=== PATIENT | female | born 1990 | race American Indian/Alaskan Native ===

== ENCOUNTER 2017-02-21 13:04 | Inpatient (IN) | payer MEDICAID, OTHER ==
--- NOTE | 2017-02-21 13:33 | Emergency Department Report ---
Chief Complaint: Abdominal Pain Stated Complaint: VOMITING, NOT FEEL GOOD - HPI History of Present Illness: This is a 26-year-old female that presents with generalized body aches, diffuse abdominal pain, vomiting, back pain that radiates towards left lower extremity. Patient denies any trauma to the back. Patient describes pain as aching with level of 8 out of 10. Patient states vomiting is from content. Denies any stiff neck, headache, chest pain, shortness of breath. - Exam Vital Signs: Vital Signs 02/21/17 13:21 Temperature 98.5 F Pulse Rate 80 Respiratory 18 Rate Blood Pressure 151/97 O2 Sat by Pulse 100 Oximetry Physical Exam: GENERAL: The patient is a well-developed, well-nourished female in no apparent distress. Patient is alert and acting appropriately for age. Alert and oriented 3, no apparent distress, normal gait, atraumatic. Back: Midline lumbar spinal tenderness. Left CVA tenderness. ABDOMEN: Soft, nontender, and nondistended. Positive bowel sounds. No hepatosplenomegaly was noted. No guarding or rebound tenderness, negative epigastric bruit. Negative psoas sign, negative sharp sign, negative McBurneys sign EXTREMITIES: Without any cyanosis, clubbing, rash, lesions or edema. Peripheral pulses intact. Capillary refill less than 2 seconds. Full range of motion bilaterally. NEUROLOGIC: Cranial nerves II through XII are grossly intact. Alert and oriented x 3. Normal gait. Symmetrical strength and sensation. Reflexes 2+ throughout. Cerebellar testing normal. GCS score of 15. MSE screening note: Focused history and physical exam performed. Due to findings the following was ordered: 1- This initial assessment/diagnostic orders/clinical plan/ treatment(s) is/are subject to change based on pt's health status, clinical progression and re- assessment by fellow clinical providers in the ED. Further treatment and workup at subsequent clinical provers discretion. Patient/guardians urged not to elope from ED as their condition may be serious if not clinically assessed and managed. 2-CBC, CMP, lipase, UA, test ED Disposition for MSE Condition: Stable Instructions: Abdominal Pain (ED)
[2017-02-21 13:52] LABS: Basophils % (Auto) 0.9 % (0.0-1.8); Eosinophils % (Auto) 0.3 % (0.0-4.3); Hematocrit 32.9 % (30.3-42.9); Hemoglobin 10.7 gm/dl (10.1-14.3); Mean Corpuscular HGB Conc 33 % (30-34); Mean Corpuscular Hemoglobin 29 pg (28-32); Mean Corpuscular Volume 88 fl (79-97); Platelet Count 208 K/mm3 (140-440); Red Blood Count 3.74 M/mm3 (3.65-5.03); Red Cell Distribution Width 14.1 % (13.2-15.2); White Blood Count 8.4 K/mm3 (4.5-11.0)
[2017-02-21 14:11] LABS: Albumin 3.5 g/dL (3.9-5); Albumin/Globulin Ratio 0.9 %; Bilirubin,Total 0.2 mg/dL (0.1-1.2); Calcium 8.2 mg/dL (8.4-10.2); Chloride 95.6 mmol/L (98-107); Potassium 3.8 mmol/L (3.6-5.0); Total Protein 7.5 g/dL (6.3-8.2)
[2017-02-21 15:36] LABS: Bacteria,Urine 2+ /HPF (Negative); Bilirubin,Urine NEG (Negative); Blood,Urine NEG (Negative); Ketones,Urine NEG (Negative); Leukocyte Esterase,Urine TR (Negative); Nitrite,Urine NEG (Negative); Urobilinogen,Urine < 2.0 mg/dL (<2.0)
[2017-02-21 15:40] LABS: Protein,Urine >500 mg/dL (Negative)
[2017-02-21] MEDS ORDERED: PHENERGAN PO ONE (22:52)
[2017-02-21] MEDS ORDERED: NORCO 5/325 PO ONE (22:52)
[2017-02-21] MEDS ORDERED: ZOFRAN IV ONE (22:58)
[2017-02-21] MEDS ORDERED: MORPHINE IV ONE (22:58)
[2017-02-21] MEDS ORDERED: NACL 0.9% 1000 ML 1,000 ML IV ONE (22:58)
--- NOTE | 2017-02-21 23:00 | Emergency Department Report ---
HPI - General Chief Complaint: Abdominal Pain Time Seen by Provider: 02/21/17 22:28 - HPI HPI: Room 26 The patient is a 26-year-old female presenting with a chief complaint nausea vomiting abdominal pain back pain. The patient states since yesterday she has had diffuse abdominal pain and low back pain. Patient states she has exhibited nausea and vomiting. The patient states today she momentarily had increased work of breathing. Patient denies fever, dysuria or hematuria. Patient did admit to burning chest pain earlier today that has since resolved. Patient also complains of intermittent numbness to her left lower extremity for the past 2 years which she has never been evaluated for. The patient states she attributed to an epidural she had received at that time. Location: [See above] Duration: [See above] Quality: Burning Severity: Moderate Modifying factors: [see above] Context: [see above] Mode of transportation: [not driving] ED Past Medical Hx - Past Medical History Previous Medical History?: No - Surgical History Past Surgical History?: No Additional Surgical History: - Family History Family history: no significant - Social History Smoking Status: Current Some Day Smoker (2-3 cigarettes daily) Substance Use Type: Marijuana - Medications Home Medications: Home Medications Medication Instructions Recorded Confirmed Last Taken Type No Known Home Medications [No 02/21/17 02/21/17 Unknown History Reported Home Medications] ED Review of Systems ROS: Stated complaint: VOMITING, NOT FEEL GOOD Other details as noted in HPI Constitutional: chills. denies: fever Respiratory: shortness of breath Cardiovascular: chest pain Gastrointestinal: abdominal pain, nausea, vomiting Genitourinary: denies: dysuria, hematuria Musculoskeletal: back pain Neurological: paresthesias Physical Exam - Physical Exam Vital Signs: Vital Signs 02/21/17 02/21/17 02/21/17 13:21 19:26 22:03 Temperature 98.5 F 98.6 F 98.2 F Pulse Rate 80 75 76 Respiratory 18 18 20 Rate Blood Pressure 151/97 148/89 Blood Pressure 135/95 [Left] O2 Sat by Pulse 100 100 98 Oximetry Physical Exam: GENERAL: The patient is well-developed well-nourished female lying on stretcher not appearing to be in acute distress. [] HEENT: Normocephalic. Atraumatic. Extraocular motions are intact. Patient has moist mucous membranes. NECK: Supple. Trachea midline CHEST/LUNGS: Clear to auscultation. There is no respiratory distress noted. HEART/CARDIOVASCULAR: Regular. There is no tachycardia. There is no gallop rub or murmur. 2+ DP left foot. Normal capillary refill toes of left foot ABDOMEN: Abdomen is soft with diffuse discomfort to palpation but no rebound or guarding. Patient has normal bowel sounds. There is no abdominal distention. SKIN: There is no rash. There is no edema. There is no diaphoresis. NEURO: The patient is awake, alert, and oriented. The patient is cooperative. The patient has normal speech MUSCULOSKELETAL: There is no evidence of acute injury. ED Course Vital Signs 02/21/17 02/21/17 02/21/17 13:21 19:26 22:03 Temperature 98.5 F 98.6 F 98.2 F Pulse Rate 80 75 76 Respiratory 18 18 20 Rate Blood Pressure 151/97 148/89 Blood Pressure 135/95 [Left] O2 Sat by Pulse 100 100 98 Oximetry ED Medical Decision Making - Lab Data Result diagrams: 02/21/17 13:35 02/21/17 13:35 Laboratory Tests 02/21/17 02/21/17 02/21/17 13:35 13:35 15:07 WBC 8.4 RBC 3.74 Hgb 10.7 Hct 32.9 MCV 88 MCH 29 MCHC 33 RDW 14.1 Plt Count 208 Lymph % (Auto) 23.6 [place] % (Auto) 13.7 H Eos % (Auto) 0.3 Baso % (Auto) 0.9 Lymph # 2.0 [place] # 1.2 H Eos # 0.0 Baso # 0.1 Seg Neutrophils % 61.5 Seg Neutrophils # 5.2 Sodium 136 L Potassium 3.8 Chloride 95.6 L Carbon Dioxide 26 Anion Gap 18 BUN 20 H Creatinine 3.0 H Estimated GFR 19 BUN/Creatinine Ratio 7 Glucose 94 Calcium 8.2 L Total Bilirubin 0.20 AST 16 ALT 11 Alkaline Phosphatase 62 Total Protein 7.5 Albumin 3.5 L Albumin/Globulin Ratio 0.9 Lipase 21 Urine Color Yellow Urine Turbidity Clear Urine pH 6.0 Ur Specific [place] 1.017 Urine Protein >500 Urine Glucose (UA) Neg Urine Ketones Neg Urine Blood Neg Urine Nitrite Neg Ur Reducing Substances Not Reportable Urine Bilirubin Neg Urine Ictotest Not Reportable Urine Urobilinogen < 2.0 Ur Leukocyte Esterase Tr Urine WBC (Auto) 63.0 H Urine RBC (Auto) 12.0 U Epithel Cells (Auto) 7.0 Urine Bacteria (Auto) 2+ Urine HCG, Qual Negative Laboratory Tests 02/21/17 02/21/17 02/21/17 13:35 13:35 15:07 WBC 8.4 RBC 3.74 Hgb 10.7 Hct 32.9 MCV 88 MCH 29 MCHC 33 RDW 14.1 Plt Count 208 Lymph % (Auto) 23.6 [place] % (Auto) 13.7 H Eos % (Auto) 0.3 Baso % (Auto) 0.9 Lymph # 2.0 [place] # 1.2 H Eos # 0.0 Baso # 0.1 Seg Neutrophils % 61.5 Seg Neutrophils # 5.2 D-Dimer Sodium 136 L Potassium 3.8 Chloride 95.6 L Carbon Dioxide 26 Anion Gap 18 BUN 20 H Creatinine 3.0 H Estimated GFR 19 BUN/Creatinine Ratio 7 Glucose 94 Calcium 8.2 L Total Bilirubin 0.20 AST 16 ALT 11 Alkaline Phosphatase 62 Total Protein 7.5 Albumin 3.5 L Albumin/Globulin Ratio 0.9 Lipase 21 Urine Color Yellow Urine Turbidity Clear Urine pH 6.0 Ur Specific [place] 1.017 Urine Protein >500 Urine Glucose (UA) Neg Urine Ketones Neg Urine Blood Neg Urine Nitrite Neg Ur Reducing Substances Not Reportable Urine Bilirubin Neg Urine Ictotest Not Reportable Urine Urobilinogen < 2.0 Ur Leukocyte Esterase Tr Urine WBC (Auto) 63.0 H Urine RBC (Auto) 12.0 U Epithel Cells (Auto) 7.0 Urine Bacteria (Auto) 2+ Urine HCG, Qual Negative 02/21/17 22:56 WBC RBC Hgb Hct MCV MCH MCHC RDW Plt Count Lymph % (Auto) [place] % (Auto) Eos % (Auto) Baso % (Auto) Lymph # [place] # Eos # Baso # Seg Neutrophils % Seg Neutrophils # D-Dimer 215.42 Sodium Potassium Chloride Carbon Dioxide Anion Gap BUN Creatinine Estimated GFR BUN/Creatinine Ratio Glucose Calcium Total Bilirubin AST ALT Alkaline Phosphatase Total Protein Albumin Albumin/Globulin Ratio Lipase Urine Color Urine Turbidity Urine pH Ur Specific [place] Urine Protein Urine Glucose (UA) Urine Ketones Urine Blood Urine Nitrite Ur Reducing Substances Urine Bilirubin Urine Ictotest Urine Urobilinogen Ur Leukocyte Esterase Urine WBC (Auto) Urine RBC (Auto) U Epithel Cells (Auto) Urine Bacteria (Auto) Urine HCG, Qual - Radiology Data Radiology results: image reviewed (chest x-ray) interpreted by me: Chest x-ray-no focal infiltrates, no pneumothorax - Differential Diagnosis pyelonephritis, acute renal failure, , ectopic , PE Critical care attestation.: If time is entered above; I have spent that time in minutes in the direct care of this critically ill patient, excluding procedure time. ED Disposition Clinical Impression: Acute renal failure, Pyelonephritis Disposition: OP ADMIT IP TO THIS HOSP Is pt being admited?: Yes Does the pt Need Aspirin: No (renal insufficiency) Condition: Fair Instructions: Abdominal Pain (ED) Referrals: PRIMARY CARE, [Primary Care Provider] - 3-5 Days Time of Disposition: 23:36 (hospitalist paged)
[2017-02-21] MEDS ORDERED: cefTRIAXone 1 GM in NACL 0.9% 20 ML IV ONE (23:04)
[2017-02-21] MEDS ORDERED: NACL 0.9% 1000 ML 1,000 ML IV SCH (23:45)
[2017-02-21] MEDS ORDERED: TYLENOL PO PRN (23:50)
[2017-02-21] MEDS ORDERED: MILK OF MAGNESIA PO PRN (23:50)
[2017-02-21] MEDS ORDERED: ZOFRAN IV PRN (23:50)
[2017-02-21] MEDS ORDERED: DULCOLAX PR PRN (23:50)
--- NOTE | 2017-02-21 23:50 | History and Physical Report ---
History of Present Illness Date of examination: 02/21/17 History of present illness: 26-year-old woman with no medical problems comes emergency room with complaints of nausea vomiting since yesterday, she said a total of 5 episodes. Also complaining of lower back pain that started yesterday, unable to describe it, constant, intensity 6/10, no radiation, denies dysuria or urinary frequency, admits to chills. Also complaining of chest pain in the epigastric area, pleuritic in nature, intensity 4/10, no radiation and she cannot identify exacerbating or relieving factors. Denies diaphoresis or palpitation, shortness of breath. Patient states she had renal failure last year secondary to nausea vomiting and it resolved during the hospitalization Review Of Systems: Constitutional: no weight loss Ears, eyes, nose, mouth and throat: no nasal congestion, no nasal discharge, no sinus pressure, blurry vision, diplopia Neck: No neck pain or rigidity. Cardiovascular: no orthopnea, palpitations Respiratory: No shortness of breath, cough Gastrointestinal: no abdominal pain, hematochezia Genitourinary : no dysuria, frequency , hematuria Musculoskeletal: no muscle ache Integumentary: no rash, no pruritis Neurological: no parathesias, focal weakness Endocrine: no cold or heat intolerance, no polyuria or polydipsia Hematologic/Lymphatic: no easy bruising, no easy bleeding, no gland swelling Allergic/Immunologic: no urticaria, no angioedema. PAST MEDICAL HISTORY: None PAST SURGICAL HISTORY: 2 FAMILY HISTORY: Hypertension SOCIAL HISTORY: Smokes 5 cigarettes a day, marijuana use, no alcohol Medications and Allergies Allergies Allergy/AdvReac Type Severity Reaction Status Date / Time No Known Allergies Allergy Unverified 02/21/17 13:24 Home Medications Medication Instructions Recorded Confirmed Last Taken Type No Known Home Medications [No 02/21/17 02/21/17 Unknown History Reported Home Medications] Active Meds: Active Medications Sodium Chloride (Nacl 0.9% 1000 Ml) 1,000 mls @ 999 mls/hr IV ONCE ONE Stop: 02/21/17 23:58 Last Admin: 02/21/17 23:28 Dose: 999 mls/hr Exam - Physical Exam Narrative exam: Gen. appearance: Patient lying in bed in no acute distress HEENT: Normocephalic/atraumatic, pupils equal round reactive to light, extra alkaline movement intact, no scleral icterus, no JVD or thyromegaly or nodule, neck is supple, mucous membrane moist, no erythema or exudate Heart: S1-S2, regular rate and rhythm Lungs: Clear to auscultation bilateral breathing comfortable Abdomen: Positive bowel sounds, nontender, nondistended, no organomegaly Extremities: No edema, cyanosis, clubbing Neuro:: Oriented 3 , cranial nerves II-12 intact, speech, motor intact Skin: No rash, nodules, warm dry - Constitutional Vitals: Temp Pulse Resp BP Pulse Ox 98.2 F 76 20 135/95 98 02/21/17 22:03 02/21/17 22:03 02/21/17 22:03 02/21/17 22:03 02/21/17 22:03 Results - Labs CBC & Chem 7: 02/22/17 03:14 02/22/17 03:14 Labs: Abnormal lab results 02/21/17 02/21/17 02/21/17 Range/Units 13:35 13:35 15:07 [place] % (Auto) 13.7 H (0.0-7.3) % [place] # 1.2 H (0.0-0.8) K/mm3 Sodium 136 L (137-145) mmol/L Chloride 95.6 L (98-107) mmol/L BUN 20 H (7-17) mg/dL Creatinine 3.0 H (0.7-1.2) mg/dL Calcium 8.2 L (8.4-10.2) mg/dL Albumin 3.5 L (3.9-5) g/dL Urine WBC (Auto) 63.0 H (0.0-6.0) /HPF - Imaging and Cardiology CT scan - abdomen: report reviewed CT scan - pelvis: report reviewed Assessment and Plan Assessment Acute renal failure Atypical chest pain Pyelonephritis Plan Admit to medicine Start IV fluid, consult renal Check cardiac enzymes, consult cardiology IV Rocephin, follow cultures DVT prophylaxis
--- NOTE | 2017-02-22 00:54 | Cat Scan Report ---
FINAL REPORT EXAM: CT ABDOMEN PELVIS WO CON HISTORY: nausea vomiting, acute renal failure TECHNIQUE: Routine axial imaging was obtained of the abdomen pelvis without oral or IV contrast. FINDINGS: The lung bases are clear. Pleural fluid is not seen. The liver, gallbladder, pancreas, spleen, and adrenal glands appear normal. The kidneys show no evidence of stones or hydronephrosis. The bowel loops are normal in caliber and course. The appendix is not enlarged. There is no evidence of free fluid or adenopathy. In the pelvis the uterus and bladder appear normal. There are no adnexal masses. The skeletal structures do not show any acute changes. IMPRESSION: No acute process in the abdomen and pelvis. No evidence of renal stones or hydronephrosis.
[2017-02-22] MEDS ORDERED: AMBIEN PO ONE (01:38)
[2017-02-22 03:31] LABS: Basophils % (Auto) 0.7 % (0.0-1.8); Eosinophils % (Auto) 0.5 % (0.0-4.3); Hematocrit 31.4 % (30.3-42.9); Hemoglobin 10.2 gm/dl (10.1-14.3); Mean Corpuscular HGB Conc 32 % (30-34); Mean Corpuscular Hemoglobin 29 pg (28-32); Mean Corpuscular Volume 88 fl (79-97); Platelet Count 191 K/mm3 (140-440); Red Blood Count 3.57 M/mm3 (3.65-5.03); Red Cell Distribution Width 13.9 % (13.2-15.2); White Blood Count 6.3 K/mm3 (4.5-11.0)
[2017-02-22 03:45] LABS: Calcium 7.6 mg/dL (8.4-10.2); Chloride 101.6 mmol/L (98-107); Potassium 3.3 mmol/L (3.6-5.0)
[2017-02-22 03:51] LABS: Creatine Kinase 130 units/L (30-135); Creatine Kinase MB < 1.0 ng/mL (0.0-4.0)
[2017-02-22 06:31] LABS: Creatine Kinase MB < 1.0 ng/mL (0.0-4.0)
[2017-02-22 06:34] LABS: Creatine Kinase 118 units/L (30-135)
--- NOTE | 2017-02-22 07:30 | XRay Report ---
AP CHEST: HISTORY: chest pain AP view of the chest demonstrates a normal mediastinal and cardiac contour with clear lungs and normal bony and soft tissue structures. IMPRESSION: Unremarkable AP chest.
[2017-02-22] MEDS: PERCOCET 5/325 PO PRN ×2 (08:23→20:19)
--- NOTE | 2017-02-22 09:26 | Consultation ---
History of Present Illness Consult date: 02/22/17 Requesting physician: MATEO TRIVEDI Consult reason: chest pain History of present illness: The pt is a 26 YO female with a past medical history significant for UTI and ARF. She is previously unknown to our practice. She presented with c/o n/v, abdominal pain and chest pain. She states that she developed n/v and abdominal pain on Monday evening around 7PM. On Monday AM, she noted the onset of midsternal chest pressure which radiated down into the epigastric area and which was only present on inspiration. She denies any palpitations, diaphoresis , dizziness or syncope. She also reports LOPEZ for the past 4 months. She denies any chest pain prior to Monday. On evaluation, she states the chest pain has resolved. She denies any prior cardiac w/u. Of note, pt reports a similar episode of n/v with eventual UTI and ARF last year in [place]. Past History Past Medical History: renal failure Past Surgical History: Social history: denies: smoking, alcohol abuse, prescription drug abuse Medications and Allergies Allergies Allergy/AdvReac Type Severity Reaction Status Date / Time No Known Allergies Allergy Unverified 02/21/17 13:24 Home Medications Medication Instructions Recorded Confirmed Last Taken Type No Known Home Medications [No 02/21/17 02/21/17 Unknown History Reported Home Medications] Active Meds: Active Medications Acetaminophen (Tylenol) 650 mg PO Q4H PRN PRN Reason: Pain MILD(1-3)/Fever >100.5/MATHEWS Bisacodyl (Dulcolax) 10 mg AK QDAY PRN PRN Reason: Constipation unrelieved by MOM Enoxaparin Sodium (Lovenox) 30 mg SUB-Q QDAY KENZIE Sodium Chloride (Nacl 0.9% 1000 Ml) 1,000 mls @ 150 mls/hr IV DIRECT KENZIE Last Admin: 02/22/17 01:56 Dose: 150 mls/hr Ceftriaxone Sodium (Rocephin/Ns 1 Gm/50 Ml) 1 gm in 50 mls @ 100 mls/hr IV Q24HR KENZIE PRN Reason: Protocol Magnesium Hydroxide (Milk Of Magnesia) 30 ml PO Q4H PRN PRN Reason: Constipation Morphine Sulfate (Morphine) 2 mg IV Q4H PRN PRN Reason: Pain, Moderate (4-6) Ondansetron HCl (Zofran) 4 mg IV Q8H PRN PRN Reason: N/V unrelieved by Reglan Oxycodone/Acetaminophen (Percocet 5/325) 1 tab PO Q6H PRN PRN Reason: Pain, Moderate (4-6) Last Admin: 02/22/17 08:23 Dose: 1 tab Review of Systems Constitutional: no weight loss, no weight gain, no fever, no chills, no sweats Ears, nose, mouth and throat: no ear pain, no nose pain, no sinus pressure, no sinus pain Cardiovascular: chest pain, shortness of breath, dyspnea on exertion, decreased exercise tolerance, no orthopnea, no palpitations, no rapid/irregular heart beat , no edema, no syncope, no lightheadedness, no paroxysmal nocturnal dyspnea, no high blood pressure, no leg edema Respiratory: shortness of breath, dyspnea on exertion, no cough, no congestion, no wheezing, no pain on inspiration Gastrointestinal: abdominal pain, nausea, vomiting, no diarrhea, no constipation , no change in bowel habits Genitourinary Female: no pelvic pain, no flank pain, no dysuria, no urinary frequency, no urgency Musculoskeletal: no neck stiffness, no neck pain, no shooting arm pain, no arm numbness/tingling, no low back pain, no shooting leg pain, no leg numbness/ tingling Integumentary: no rash, no pruritis, no redness, no sores, no wounds Neurological: no head injury, no paralysis, no weakness, no parathesias, no numbness, no tingling, no seizures, no syncope Psychiatric: no anxiety Endocrine: no cold intolerance, no heat intolerance Hematologic/Lymphatic: no easy bruising, no easy bleeding, no lymphadenopathy Allergic/Immunologic: no urticaria, no wheezing, no persistent infections Physical Examination Vital Signs Pulse BP Pulse Ox 82 151/97 99 02/21/17 13:09 02/21/17 13:09 02/21/17 13:09 General appearance: no acute distress HEENT: Positive: PERRL, Normocephaly, Mucus Membranes Moist Neck: Positive: neck supple, trachea midline Cardiac: Positive: Reg Rate and Rhythm, S1/S2 Lungs: Positive: Normal Exam, clear to auscultation, Normal Breath Sounds Neuro: Positive: Grossly Intact, Cranial Nerve 2-12 Intact Abdomen: Positive: Unremarkable, Soft, Active Bowel Sounds. Negative: Tender Skin: Positive: Clear. Negative: Rash, Wound Musculoskeletal: No Fluid Collection, No Pain, Normal Range of Motion Extremities: Present: upper extr. pulses, lower extr. pulses. Absent: edema Results 02/22/17 03:14 02/22/17 03:14 Cardiac Enzymes 02/21/17 02/22/17 02/22/17 Range/Units 13:35 03:14 05:52 AST 16 (5-40) units/L CK-MB (CK-2) < 1.0 < 1.0 (0.0-4.0) ng/mL CBC 02/21/17 02/22/17 Range/Units 13:35 03:14 WBC 8.4 6.3 (4.5-11.0) K/mm3 RBC 3.74 3.57 L (3.65-5.03) M/mm3 Hgb 10.7 10.2 (10.1-14.3) gm/dl Hct 32.9 31.4 (30.3-42.9) % Plt Count 208 191 (140-440) K/mm3 Lymph # 2.0 2.0 (1.2-5.4) K/mm3 [place] # 1.2 H 0.8 (0.0-0.8) K/mm3 Eos # 0.0 0.0 (0.0-0.4) K/mm3 Baso # 0.1 0.0 (0.0-0.1) K/mm3 Comprehensive Metabolic Panel 02/21/17 02/22/17 Range/Units 13:35 03:14 Sodium 136 L 141 (137-145) mmol/L Potassium 3.8 3.3 L (3.6-5.0) mmol/L Chloride 95.6 L 101.6 (98-107) mmol/L Carbon Dioxide 26 24 (22-30) mmol/L BUN 20 H 17 (7-17) mg/dL Creatinine 3.0 H 2.5 H (0.7-1.2) mg/dL Glucose 94 102 H (65-100) mg/dL Calcium 8.2 L 7.6 L (8.4-10.2) mg/dL AST 16 (5-40) units/L ALT 11 (7-56) units/L Alkaline Phosphatase 62 (35-129) units/L Total Protein 7.5 (6.3-8.2) g/dL Albumin 3.5 L (3.9-5) g/dL - Imaging and Cardiology Echo: pending EKG: report reviewed, image reviewed EKG interpretations - Telemetry EKG Rhythm: Sinus Rhythm - EKG Sinus rhythms and dysrhythmias: sinus rhythm Assessment and Plan Assessment: Abdominal pain / nausea / vomiting - abdomen/pelvis CT with NAF Chest pain, atypical - ECG with NAF; [place] negative for AMI; currently resolved LOPEZ x 4 months [employer] Acute renal failure Hypokalemia Obesity Plan: Await nephrology consultation. Electrolyte replacement per nephrology. Recommend GI consultation. Obtain echo. Consider lexiscan MPI stress test once medically stabilized - can be done as inpatient or outpatient. Assessment and plan reviewed with pt at bedside. The patient has been seen in conjunction with Dr. Brunson who agrees with the assessment and plan of care.
[2017-02-22] MEDS: LOVENOX SUB-Q SCH (10:23)
[2017-02-22] MEDS: MORPHINE IV PRN ×2 (12:43→16:19)
--- NOTE | 2017-02-22 13:13 | Consultation ---
History of Present Illness - Reason for Consult Consult date: 02/22/17 acute renal failure Requesting physician: MATEO TRIVEDI - History of Present Illness 26-year-old woman with no medical problems comes emergency room with complaints of nausea vomiting since yesterday, she said a total of 5 episodes. Also complaining of lower back pain that started yesterday, unable to describe it, constant, intensity 6/10, no radiation, denies dysuria or urinary frequency, admits to chills. Also complaining of chest pain in the epigastric area, pleuritic in nature, intensity 4/10, no radiation and she cannot identify exacerbating or relieving factors. Denies diaphoresis or palpitation, shortness of breath. Patient states she had renal failure last year secondary to nausea vomiting and it resolved during the hospitalization Review Of Systems: Constitutional: no weight loss Ears, eyes, nose, mouth and throat: no nasal congestion, no nasal discharge, no sinus pressure, blurry vision, diplopia Neck: No neck pain or rigidity. Cardiovascular: no orthopnea, palpitations Respiratory: No shortness of breath, cough Gastrointestinal: no abdominal pain, hematochezia Genitourinary : no dysuria, frequency , hematuria Musculoskeletal: no muscle ache Integumentary: no rash, no pruritis Neurological: no parathesias, focal weakness Endocrine: no cold or heat intolerance, no polyuria or polydipsia Hematologic/Lymphatic: no easy bruising, no easy bleeding, no gland swelling Allergic/Immunologic: no urticaria, no angioedema. PAST MEDICAL HISTORY: None PAST SURGICAL HISTORY: 2 FAMILY HISTORY: Hypertension SOCIAL HISTORY: Smokes 5 cigarettes a day, marijuana use, no alcohol Past History Past Medical History: renal failure Past Surgical History: Social history: denies: smoking, alcohol abuse, prescription drug abuse Medications and Allergies Allergies Allergy/AdvReac Type Severity Reaction Status Date / Time No Known Allergies Allergy Unverified 02/21/17 13:24 Home Medications Medication Instructions Recorded Confirmed Last Taken Type No Known Home Medications [No 02/21/17 02/21/17 Unknown History Reported Home Medications] Active Meds: Active Medications Acetaminophen (Tylenol) 650 mg PO Q4H PRN PRN Reason: Pain MILD(1-3)/Fever >100.5/MATHEWS Bisacodyl (Dulcolax) 10 mg UT QDAY PRN PRN Reason: Constipation unrelieved by MOM Enoxaparin Sodium (Lovenox) 30 mg SUB-Q QDAY KENZIE Last Admin: 02/22/17 10:23 Dose: 30 mg Sodium Chloride (Nacl 0.9% 1000 Ml) 1,000 mls @ 150 mls/hr IV DIRECT KENZIE Last Admin: 02/22/17 01:56 Dose: 150 mls/hr Ceftriaxone Sodium (Rocephin/Ns 1 Gm/50 Ml) 1 gm in 50 mls @ 100 mls/hr IV Q24HR KENZIE PRN Reason: Protocol Magnesium Hydroxide (Milk Of Magnesia) 30 ml PO Q4H PRN PRN Reason: Constipation Morphine Sulfate (Morphine) 2 mg IV Q4H PRN PRN Reason: Pain, Moderate (4-6) Last Admin: 02/22/17 12:43 Dose: 2 mg Ondansetron HCl (Zofran) 4 mg IV Q8H PRN PRN Reason: N/V unrelieved by Reglan Oxycodone/Acetaminophen (Percocet 5/325) 1 tab PO Q6H PRN PRN Reason: Pain, Moderate (4-6) Last Admin: 02/22/17 08:23 Dose: 1 tab Exam - Vital Signs Vital signs: Vital Signs Pulse BP Pulse Ox 82 151/97 99 02/21/17 13:09 02/21/17 13:09 02/21/17 13:09 - Physical Exam Narrative exam: Gen. appearance: Patient lying in bed in no acute distress HEENT: Normocephalic/atraumatic, pupils equal round reactive to light, extra alkaline movement intact, no scleral icterus, no JVD or thyromegaly or nodule, neck is supple, mucous membrane moist, no erythema or exudate Heart: S1-S2, regular rate and rhythm Lungs: Clear to auscultation bilateral breathing comfortable Abdomen: Positive bowel sounds, nontender, nondistended, no organomegaly Extremities: No edema, cyanosis, clubbing Neuro:: Oriented 3 , cranial nerves II-12 intact, speech, motor intact Skin: No rash, nodules, warm dry Results - Lab Results 02/22/17 03:14 02/22/17 03:14 Most recent lab results Calcium 7.6 mg/dL (8.4-10.2) L 02/22/17 03:14 Assessment and Plan Assessment Acute renal failure Atypical chest pain Pyelonephritis Hypokalemia Nausea/emesis dehydration Plan continue IV fluid cr is better today replete lytes prn IV Rocephin, follow cultures ct noted, no hydro--no nephrogenic stranding noted DVT prophylaxis
[2017-02-22] MEDS ORDERED: K-DUR PO ONE (14:00)
[2017-02-22] MEDS ORDERED: MAGNESIUM SULFATE 2GM/50ML 2 GM/50 ML BAG IV ONE (14:15)
--- NOTE | 2017-02-22 14:23 | Progress Note ---
Assessment and Plan Assessment and Plan Assessment Acute renal failure improving Cr down to 2.5 from 3.0 Atypical chest pain Pyelonephritis Plan Admit to medicine Start IV fluid, consult renal Check cardiac enzymes, consult cardiology IV Rocephin, follow cultures DVT prophylaxis Subjective Date of service: 02/22/17 Principal diagnosis: Ac Renal failure Interval history: Doing better Objective - Constitutional Vitals: Vital Signs - 12hr 02/22/17 02/22/17 02/22/17 04:15 08:16 08:26 Temperature 98.4 F 97.7 F Pulse Rate 76 75 Respiratory 20 16 Rate Blood Pressure 107/61 116/84 Blood Pressure [Left] O2 Sat by Pulse 99 Oximetry 02/22/17 02/22/17 08:53 11:19 Temperature 98.0 F 97.6 F Pulse Rate 77 77 Respiratory 18 16 Rate Blood Pressure 115/71 Blood Pressure 115/85 [Left] O2 Sat by Pulse 100 Oximetry General appearance: Present: no acute distress, well-nourished - EENT Eyes: PERRL, EOM intact ENT: hearing intact, clear oral mucosa Ears: bilateral: normal - Neck Neck: supple, normal ROM - Respiratory Respiratory effort: normal Respiratory: bilateral: CTA - Breasts Breasts: normal - Cardiovascular Rhythm: regular Heart Sounds: Present: S1 & S2. Absent: gallop, rub Extremities: pulses intact, No edema, normal color, Full ROM - Gastrointestinal General gastrointestinal: Present: soft, non-tender, non-distended, normal bowel sounds - Genitourinary Female genitourinary: normal - Integumentary Integumentary: clear, warm, dry - Musculoskeletal Musculoskeletal: 1, strength equal bilaterally - Neurologic Neurologic: moves all extremities - Psychiatric Psychiatric: memory intact, appropriate mood/affect, intact judgment & insight - Labs CBC & Chem 7: 02/22/17 03:14 02/22/17 03:14 Labs: Abnormal lab results 02/21/17 02/22/17 02/22/17 Range/Units 15:07 03:14 03:14 RBC 3.57 L (3.65-5.03) M/mm3 Beauregard % (Auto) 12.0 H (0.0-7.3) % Potassium 3.3 L (3.6-5.0) mmol/L Creatinine 2.5 H (0.7-1.2) mg/dL Glucose 102 H (65-100) mg/dL Calcium 7.6 L (8.4-10.2) mg/dL Magnesium (1.7-2.3) mg/dL Urine WBC (Auto) 63.0 H (0.0-6.0) /HPF 02/22/17 Range/Units 05:54 RBC (3.65-5.03) M/mm3 Beauregard % (Auto) (0.0-7.3) % Potassium (3.6-5.0) mmol/L Creatinine (0.7-1.2) mg/dL Glucose (65-100) mg/dL Calcium (8.4-10.2) mg/dL Magnesium 1.20 L (1.7-2.3) mg/dL Urine WBC (Auto) (0.0-6.0) /HPF
[2017-02-22] MEDS ORDERED: ROCEPHIN/NS 1 GM/50 ML 1 GM/50 ML BAG IV SCH (23:00)
[2017-02-22] MEDS ORDERED: cefTRIAXone 1 GM in NACL 0.9% 20 ML IV SCH (23:00)
[2017-02-23 05:50] VITALS: BP 123/76
[2017-02-23 06:12] LABS: Anion Gap 15 mmol/L; BUN/Creatinine Ratio 9; Blood Urea Nitrogen 12 mg/dL (7-17); Calcium 7.8 mg/dL (8.4-10.2); Carbon Dioxide 28 mmol/L (22-30); Chloride 100.7 mmol/L (98-107); Glucose 93 mg/dL (65-100); Potassium 3.7 mmol/L (3.6-5.0); Sodium 140 mmol/L (137-145)
--- NOTE | 2017-02-23 08:23 | Discharge Summary ---
Providers - Providers Date of Admission: 02/21/17 23:50 Attending physician: KOFFI OROURKE 02/21/17 23:50 Consult to Physician [CONS] Routine Consulting Provider: ROMAINE ROPER Reason For Exam: ARF Place consult to:: Dr. Roper Notified:: Zenia DEE Phone number called:: Was contact made?: Yes If yes, spoke with:: Christine-answering service Time called:: 08:25 02/22/17 00:52 Consult to Physician [CONS] Routine Consulting Provider: ADRIAN CAPONE Reason For Exam: cp Notified:: secretary of state pl call Primary care physician: ORACLE ENDECA CONSULTANT Hospitalization Condition: Fair Exam - Constitutional Vitals: Temp Pulse Resp BP Pulse Ox 98.2 F 71 18 123/76 99 02/23/17 04:27 02/23/17 04:27 02/23/17 04:27 02/23/17 04:27 02/23/17 04:27 Plan Follow up with: PRIMARY MD PERRI [Primary Care Provider] - 3-5 Days
--- NOTE | 2017-02-23 10:06 | Progress Note ---
Assessment and Plan cardiac status appears stable no new card rec at this time Subjective Date of service: 02/23/17 Principal diagnosis: Ac Renal failure Interval history: no further cp no sob in no distress echo results discussed Objective Vital Signs Temp Pulse Resp BP BP Pulse Ox 02/23/17 04:27 98.2 F 71 18 123/76 99 02/22/17 23:28 97.9 F 18 114/69 02/22/17 20:09 97.6 F 72 108/79 100 02/22/17 17:19 97.7 F 75 18 133/90 100 02/22/17 17:00 97.7 F 78 18 133/90 100 02/22/17 11:19 97.6 F 77 16 115/71 100 - Physical Examination HEENT: Positive: PERRL, Normocephaly, Mucus Membranes Moist Neck: Positive: neck supple, trachea midline Cardiac: Positive: Reg Rate and Rhythm Lungs: Positive: clear to auscultation Neuro: Positive: Grossly Intact, Cranial Nerve 2-12 Intact Abdomen: Positive: Unremarkable, Soft, Active Bowel Sounds. Negative: Tender Skin: Positive: Clear. Negative: Rash, Wound Musculoskeletal: No Fluid Collection, No Pain, Normal Range of Motion Extremities: Present: upper extr. pulses, lower extr. pulses. Absent: edema - Labs and Meds Comprehensive Metabolic Panel 02/23/17 Range/Units 05:01 Sodium 140 (137-145) mmol/L Potassium 3.7 (3.6-5.0) mmol/L Chloride 100.7 (98-107) mmol/L Carbon Dioxide 28 (22-30) mmol/L BUN 12 (7-17) mg/dL Creatinine 1.3 H (0.7-1.2) mg/dL Glucose 93 (65-100) mg/dL Calcium 7.8 L (8.4-10.2) mg/dL - Imaging and Cardiology EKG: report reviewed, image reviewed Echo: pending - EKG Sinus rhythms and dysrhythmias: sinus rhythm
[2017-02-23] MEDS: LOVENOX SUB-Q SCH (10:27)
[2017-02-23] MEDS ORDERED: MAGNESIUM SULFATE 3 GM in NACL 0.9% 100 ML IV ONE (12:19)
--- NOTE | 2017-02-23 12:23 | Discharge Summary ---
Providers - Providers Date of Admission: 02/21/17 23:50 Date of discharge: 02/23/17 Attending physician: KOFFI OROURKE 02/21/17 23:50 Consult to Physician [CONS] Routine Consulting Provider: ROMAINE ROPER Reason For Exam: ARF Place consult to:: Dr. Roper Notified:: Zenia DEE Phone number called:: Was contact made?: Yes If yes, spoke with:: Christine-answering service Time called:: 08:25 02/22/17 00:52 Consult to Physician [CONS] Routine Consulting Provider: ADRIAN CAPONE Reason For Exam: cp Notified:: company secretary pl call Primary care physician: [employer] Hospitalization Reason for admission: chest pain Condition: Fair Pertinent studies: CT abdomen and pelvis; no acute abnormality noted Echocardiogram; ejection fraction 55%-60% Chest x-ray; normal study Hospital course: Ready pleasant 26-year-old morbidly obese female patient with a BMI of 52. The significant past medical history of acute renal failure and urinary tract infection was admitted through emergency room with atypical chest pain Patient was initially evaluated admitted to the hospital symptomatically managed Cardiology has evaluated the patient, recommend outpatient stress test Echocardiogram ejection fraction 55-60% CT abdomen and pelvis; no acute abnormality noted MS screen 4 was negative, no acute EKG changes noted, patient's symptoms significantly improved Today she is comfortable in bed alert awake oriented 3 not in acute distress Chest pain or shortness of breath Urine analysis is consistent with UTI Patient counseled diet modification and exercise as tolerated and weight reduction in medically stable May benefit by bariatric surgical consultation for weight reduction program in view of morbid obesity when medically stable Today she has no new complaints Vital signs are stable Physical examination unremarkable Hemodynamically and clinically stable for discharge Advised follow-up with cardiology, for a possible outpatient stress test Patient is hemodynamically and clinically stable for discharge and does not need any further acute inpatient care at this time Discharge diagnosis; --Atypical chest pain; probably secondary to gastroesophageal reflux --Gastroesophageal reflux disease --Urinary tract infection; empiric antibiotics with Bactrim DS, advised plenty of oral fluids --Morbid obesity; counseling done diet modification and exercise as tolerated and weight reduction --Hypokalemia; corrected --Hypomagnesemia; replaced --Tobacco use Disposition: TO HOME OR SELFCARE Time spent for discharge: 32 min Core Measure Documentation - Palliative Care Palliative Care/ Comfort Measures: Not Applicable - Core Measures Any of the following diagnoses?: none Exam - Constitutional Vitals: Temp Pulse Resp BP Pulse Ox 98.2 F 71 18 123/76 99 02/23/17 04:27 02/23/17 04:27 02/23/17 04:27 02/23/17 04:27 02/23/17 04:27 General appearance: Present: no acute distress, well-nourished, obese (morbidly obese) - EENT Eyes: Present: PERRL, EOM intact - Neck Neck: Present: supple, normal ROM - Respiratory Respiratory effort: normal Respiratory: bilateral: diminished, negative: rales, rhonchi, wheezing - Cardiovascular Rhythm: regular Heart Sounds: Present: S1 & S2 - Extremities Extremities: no ischemia, No edema - Abdominal General gastrointestinal: Present: soft, non-tender, non-distended - Integumentary Integumentary: Present: clear, warm - Musculoskeletal Musculoskeletal: strength equal bilaterally - Psychiatric Psychiatric: appropriate mood/affect, cooperative - Neurologic Neurologic: CNII-XII intact, moves all extremities Plan Activity: no restrictions Diet: other (cardiac diet) Additional Instructions: If you have recurrent chest pain, contact M.D. or go to emergency room. Lexiscan stress test as out patient, follow cardiology. Diet modification, exercise as tolerated and weight reduction. Advised to see, bariatric surgeon for weight reduction evaluation program when medically stable. Smoking cessation counseling done, advised nicotine patch Follow up with: [facility] [Provider Group] - 7 Days RAJENDRA REESE MD [Staff Physician] - 7 Days [facility]IMARY [facility], [Primary Care Provider] - 3-5 Days Forms: Discharge Signature Page, Work/School Release Form Prescriptions: Famotidine/Ca Carb/Mag Hydrox [Pepcid Complete Tablet Chew] 1 each PO BID #20 tab.chew Nicotine [Habitrol] 14 mg TD DAILY #30 patch Sulfamethoxazole/Trimethoprim [Bactrim DS TAB] 1 each PO BID #14 tablet
== END 2017-02-23 14:21 | disposition home or self-care (01) | DRG 683 ==
LOC: ED 13:04 → 4A 23:50
PROVIDERS: ADMIT Internal Medicine; ATTEND Internal Medicine
DX: N17.9 Acute kidney failure, unspecified (principal); N39.0 Urinary tract infection, site not specified; Z68.43 Body mass index [BMI] 50.0-59.9, adult; K21.9 Gastro-esophageal reflux disease without esophagitis; N12 Tubulo-interstitial nephritis, not specified as acute or chronic; F17.210 Nicotine dependence, cigarettes, uncomplicated; R07.89 Other chest pain; E87.6 Hypokalemia; E86.0 Dehydration; R11.2 Nausea with vomiting, unspecified; E66.01 Morbid (severe) obesity due to excess calories; E83.42 Hypomagnesemia; Z87.440 Personal history of urinary (tract) infections; Z82.49 Family history of ischemic heart disease and other diseases of the circulatory system; Z71.3 Dietary counseling and surveillance
CPT/HCPCS: 36415; 71010; 74176; 80048; 80053; 81001; 81025; 82550; 82553; 83690; 83735; 84484; 85025; 85379; 93005; 93010; 93306; 96361; 96374; 96375; 99285; J0696; J1650; J2270; J2405; J3475; J7030

== ENCOUNTER 2017-03-13 20:24 | Emergency (ER) | payer SELFPAY | END 2017-03-13 22:20 | disposition left against medical advice (07) | LOC: ED 20:24 | DX: R10.9 Unspecified abdominal pain (principal); Z53.21 Procedure and treatment not carried out due to patient leaving prior to being seen by health care provider ==